=== PATIENT | male | born 1950 ===

== ENCOUNTER 2024-08-08 10:56 | Day surgery (SDC) | payer MEDICARE, OTHER ==
[~2024-08-08] VITALS: Ht 188 cm; Wt 93.9 kg
[2024-08-08] VITALS (9 sets, daily range): BP systolic 118–142; BP diastolic 57–80; PULSE 62–86; TEMP 97.2–98.2
[~2024-08-08 10:56] MED LIST: LR 1,000 ML IV SCH
[2024-08-08] MEDS ORDERED: GLUCOTROL 5M5 MG/TAB PO (11:29)
[2024-08-08] MEDS ORDERED: GLUCOPHAGE1000 MG PO (11:29)
[2024-08-08] MEDS ORDERED: LIPITOR20 MG PO (11:30)
[2024-08-08] MEDS ORDERED: TENORMIN 2525 MG/TAB PO (11:30)
[2024-08-08] MEDS ORDERED: Succinylcholine PF 200 MG/10 ML SYRINGE IV ONE (12:34)
[2024-08-08] MEDS ORDERED: fentaNYL 50 MCG/ML 2 ML VIAL ONE ×2 (12:34→15:22)
[2024-08-08] MEDS ORDERED: Rocuronium 50 MG/5 ML Multi-Dose VIAL ONE (12:34)
[2024-08-08] MEDS ORDERED: Lidocaine PF 2% (20 MG/ML) 5 ML VIAL ONE (12:39)
[2024-08-08] MEDS ORDERED: NS 10 ML IV ONE ×2 (12:40)
[2024-08-08] MEDS ORDERED: Ketorolac 30 MG/ML VIAL ONE (12:40)
[2024-08-08] MEDS ORDERED: Phenylephrine 10 MG/ML VIAL ONE (12:40)
[2024-08-08] MEDS ORDERED: NS 100 ML IV ONE (12:40)
[2024-08-08] MEDS ORDERED: Ondansetron 4 MG/2 ML VIAL ONE (12:40)
[2024-08-08] MEDS ORDERED: dexAMETHasone 10 MG/ML VIAL ONE (12:40)
[2024-08-08] MEDS ORDERED: Glycopyrrolate 0.2 MG/ML 1 ML VIAL ONE (12:40)
[2024-08-08] MEDS ORDERED: HYDROmorphone 1 MG/1 ML SYRINGE [PACU/SDC ONLY] IV PRN (13:15)
[2024-08-08] MEDS ORDERED: hydrALAZINE 20 MG/ML 1 ML VIAL IV PRN (13:15)
[2024-08-08] MEDS ORDERED: fentaNYL 50 MCG/ML 1 ML SYRINGE/VIAL [PACU/SDC ONLY] IV PRN (13:15)
[2024-08-08] MEDS ORDERED: Ondansetron 4 MG/2 ML VIAL IV PRN ×2 (13:15→15:45)
[2024-08-08] MEDS ORDERED: ePHEDrine 50 MG/ML VIAL ONE (14:38)
[2024-08-08] MEDS ORDERED: Iohexol 350 - 100 ML VIAL URETER-B ONE (15:05)
[2024-08-08] MEDS ORDERED: Lidocaine 2% (20 MG/ML) 20 ML UROJET UR ONE (15:05)
[2024-08-08] MEDS ORDERED: Hyoscyamine 0.125 MG Sublingual TAB SL PRN (15:45)
[2024-08-08] MEDS ORDERED: Acetaminophen 325 MG TAB PO PRN (15:45)
[2024-08-08] MEDS ORDERED: Morphine 4 MG/ML VIAL IV PRN (15:45)
[2024-08-08] MEDS ORDERED: oxyCODONE/Acetaminophen 5-325 MG TAB PO PRN (15:45)
[2024-08-08] MEDS ORDERED: NS Irrig Soln 3000 ML SOLN IR PRN (15:45)
[2024-08-08] MEDS ORDERED: Magnes Hydrox (MOM) 80 MG/ML 30 ML CUP PO PRN (15:45)
[2024-08-08] MEDS ORDERED: 1/2 NS & 20 mEq KCl 1,000 ML IV SCH (15:45)
--- NOTE | 2024-08-08 16:30 | NUR ---
Pt. arrived to the floor at this time. Pt. is A&OX3. Assessment within normal limits. Pt. denies pain. 3 way devi catheter to DD, CBI running moderatly at this time. Urine is White red. Pt. denies further needs, call light within reach.
[2024-08-08] MEDS ORDERED: Insulin Lispro (HumaLOG) SQ SCH (17:00)
--- NOTE | 2024-08-08 20:00 | NUR ---
PATIENT IS A&O. VSS. NO C/O PAIN OR N/V, POSSIBLY HAVING A FEW BLADDER SPASMS WITH CLOTS. SOLO TO DD WITH CBI INFUSING AT MOD TO FAST RATE, URINE IS TOURE RED WITH A FEW TISSUE CLOTS NOTED. GAVE PRN LEVSIN & TYLENOL WITH HS MEDS. IV FLUIDS INFUSING INTO RIGHT FORARM IV. TOLERATING ADA DIET. HS BS WAS 292, SSI GIVEN. HEAD TO TOE ASSESSMENT COMPLETE. SCD'S TO BLE. PLAN IS FOR MITOMYCIN TOMORROW. NO OTHER NEEDS AT THIS TIME. CALL LIGHT IN REACH.
[2024-08-08] MEDS ORDERED: Atenolol 25 MG TAB PO SCH (21:00)
[2024-08-08] MEDS ORDERED: Docusate Sodium 100 MG CAP PO SCH (21:00)
[2024-08-09] VITALS (12 sets, daily range): BP systolic 101–164; BP diastolic 61–77; PULSE 58–69; TEMP 97.5–98.3
[2024-08-09] MEDS ORDERED: MITOMYCIN 40 MG IS ONE (07:15)
[2024-08-09] MEDS ORDERED: WATER FOR INJECTION STERILE IS ONE (07:15)
--- NOTE | 2024-08-09 08:18 | NUR ---
SHIFT ASSESSMENT COMPLETE. VSS. PATIENT AWAKE IN BED JUST FINISHED BREAKFAST. ALL MORNING MEDS GIVEN ORDERED. SOLO CATH IN PLACE CBI RUNNING MODERATE DRAINAGE PINK WITH MIN. LITTLE CLOTS VISIABLE. PATIENT STATES NO PAIN AT THIS TIME AND NO REQUEST. CALL LIGHT IN REACH
[2024-08-09] MEDS ORDERED: Dextrose (Glucose) 15 GM (4 x 3.75 GM) Chewable TABLET PACK PO PRN (09:15)
[2024-08-09] MEDS ORDERED: Glucagon 1 MG VIAL IM PRN (09:15)
[2024-08-09] MEDS ORDERED: Dextrose 50% Water 25 GM/50 ML SYRINGE IV PRN (09:15)
--- NOTE | 2024-08-09 09:17 | NUR ---
SW met with patient to complete initial assessment for discharge planning. Patient verified that he lives in [place] with his Jennifer ([phone]). He sees Dr. Amairani Rosario as his PCP and uses [facility] in [place]. Patient denies having any DME. He does not have a DPOA completed. Patient hopes to discharge to home today with his to drive him. Discharge plan: Home
--- NOTE | 2024-08-09 09:57 | NUR ---
Initial visit; Patient thanked [employer] Engineer for letting him know of the avaiability of [facility] at [facility] and for wishing him well. Patient using phone so visit cut short.
[2024-08-09] MEDS ORDERED: 1/2 NS 1,000 ML IV SCH (17:30)
[2024-08-10 03:31] VITALS: BP 95/53; PULSE 54; TEMP 97.7
[2024-08-10 04:29] VITALS: BP_SYST 95
--- NOTE | 2024-08-10 06:49 | NUR ---
SOLO WITH LIGHT PINK URINE, NO CLOTS PRESENT, NO C/O PAIN THIS SHIFT, IV TO INT.
[2024-08-10 07:28] VITALS: BP 111/60; PULSE 53; TEMP 98
[2024-08-10 08:00] VITALS: BP_SYST 111
--- NOTE | 2024-08-10 08:00 | NUR ---
SHIFT ASSESSMENT COMPLETE. VSS. PATIENT RESTING IN BED AWAITING BREAKFAST. ALL MORNING MEDS GIVEN ORDERED. PATIENT REPORTS NO PAIN THIS AM. SOLO CATHETER IN PLACE DRIANING LIGHT PINK TO FAINT YELLOW. PATIENT HAS NO NEEDS AT THIS TIME. APTIENT IND IN ROOM AND CALL LIGHT IN REACH
--- NOTE | 2024-08-10 09:30 | NUR ---
DR. AVILES CALLED TO FOLLOW UP ON PATIENT, VERABLE ORDER GIVEN TO DISCHARGE PATIENT AND HAVE HIM FOLLOW UP WITH DR. BRIGHT NEXT WEEK AND CATHETER WILL BE REMOVED AT THAT APT. ADVISED PATIENT AND PATIENT OK WITH GOING HOME WITH CATHER AND FOLLOWING UP WITH DR. BRIGHT NEXT WEEK. DISCHARGE ORDER ENTERED BY THIS NURSE
== END 2024-08-10 11:16 | disposition home or self-care (01) ==
LOC: SDCO 10:56 → SURG 17:00 → SDCO 08-10 11:16
DX: C67.9 Malignant neoplasm of bladder, unspecified (principal); Z85.828 Personal history of other malignant neoplasm of skin; Z87.891 Personal history of nicotine dependence
CPT/HCPCS: OP; J0690; J1100; J1815; J1885; J2371; J2405; J2704; J3010; J7120; J9280; Q9967